=== PATIENT | male | born 1955 | race Two or more races ===

== ENCOUNTER 2022-09-15 06:40 | Day surgery (SDC) | payer OTHER ==
[~2022-09-15] VITALS: Ht 165.1 cm; Wt 55.8 kg
[~2022-09-15 06:40] MED LIST: [UNRECOGNIZED DRUG - OTHER]
[2022-09-15] MEDS ORDERED: TRAMADOL HCL50 MG PO (12:06)
== END 2022-09-15 13:30 | disposition home or self-care (01) ==
LOC: CIR.AMB 06:40
PROVIDERS: ATTEND Surgery
DX: C20 Malignant neoplasm of rectum (principal); R59.0 Localized enlarged lymph nodes; Z88.6 Allergy status to analgesic agent; E78.00 Pure hypercholesterolemia, unspecified; F17.210 Nicotine dependence, cigarettes, uncomplicated; Z20.822 Contact with and (suspected) exposure to COVID-19
CPT/HCPCS: 36561; 77001; C1788